=== PATIENT | female | born 1940 | race Caucasian/White ===

== ENCOUNTER 2016-08-22 08:05 | Outpatient (CLI) | payer MEDICARE, BC ==
[~2016-08-22] VITALS: Ht 175.4 cm; Wt 77.2 kg
[~2016-08-22 08:05] MED LIST: ASPIRIN 81M81 MG/TA2 PO; COLACE 100100 MG/CAP PO; CORDARONE200 MG/TAB PO; COZAAR 25MG25 MG/TAB PO; ELIQUIS 2.5 PO; FOLIC ACID 11 MG/TA1 PO; FOLIC ACID0.4 MG PO; HUMALOG100 U/ML SQ; LANTUS100 U/ML SC; LANTUS100 U/ML SQ; NEPHROCAP PO; NORCO 325 MG-51 TAB PO; VITAMIN C500 MG PO; VTAMINC250TA
[2016-08-22] MEDS ORDERED: ALDACTONE 25MG25 M1 PO (08:36)
[2016-08-22] MEDS ORDERED: HUMALOG100 U/ML SQ (08:37)
[2016-08-22] MEDS ORDERED: LANTUS100 U/ML SQ (08:38)
[2016-08-22 08:47] VITALS: BP 212/92; PULSE 67; TEMP 97.1
[2016-08-22 09:23] VITALS: BP 220/91; PULSE 68
[2016-08-22 12:30] VITALS: BP 192/88; PULSE 70; TEMP 97.1
[2016-08-22 12:45] VITALS: BP 200/91; PULSE 70; TEMP 97.1
[2016-08-22 13:00] VITALS: BP 192/91; PULSE 70; TEMP 97.1
[2016-08-22 13:15] VITALS: BP 200/138; PULSE 70; TEMP 97.1
== END 2016-08-22 14:08 | disposition home or self-care (01) ==
LOC: EUO 08:05
DX: T82.858A Stenosis of other vascular prosthetic devices, implants and grafts, initial encounter (principal); N18.6 End stage renal disease; Y83.8 Other surgical procedures as the cause of abnormal reaction of the patient, or of later complication, without mention of misadventure at the time of the procedure
CPT/HCPCS: C1725; C1769; C1894; J1644; J2250; J3010; J7120; Q9967

== ENCOUNTER 2017-02-13 10:23 | Outpatient (CLI) | payer MEDICARE, BC ==
[~2017-02-13] VITALS: Ht 175.3 cm; Wt 72.7 kg
[2017-02-13] VITALS (12 sets, daily range): BP systolic 184–226; BP diastolic 77–101; PULSE 59–83
[~2017-02-13 10:23] MED LIST changes: +ALDACTONE 25MG25 M1 PO; -COZAAR 25MG25 MG/TAB PO; +COZAAR 50MG50 MG/TAB PO
[2017-02-13] MEDS ORDERED: FOLIC ACID 11 MG/TA1 PO (11:42)
== END 2017-02-13 16:34 | disposition home or self-care (01) ==
LOC: COL.CAR 10:23
DX: T82.838A Hemorrhage due to vascular prosthetic devices, implants and grafts, initial encounter (principal); I12.0 Hypertensive chronic kidney disease with stage 5 chronic kidney disease or end stage renal disease; E11.22 Type 2 diabetes mellitus with diabetic chronic kidney disease; N18.6 End stage renal disease; Z79.4 Long term (current) use of insulin
CPT/HCPCS: J2250; J3010; Q9967

== ENCOUNTER 2017-08-12 13:45 | Inpatient (IN) | payer MEDICARE, BC ==
[~2017-08-12] VITALS: Ht 175.3 cm; Wt 82.3 kg
[~2017-08-12 13:45] MED LIST changes: +ARANESP0.04 MG/0. IV; +COREG 6.256.25 MG/TA PO; -COZAAR 50MG50 MG/TAB PO; +COZAAR100 MG PO; +HEPARIN SOD U IV; +MIRALAX PA17 GM/Dose PO; +NORVASC 5MG5 MG/TAB PO; +PLAVIX 75MG TAB75 MG PO; +TYLENOL 325MG325 MG PO; +[UNRECOGNIZED DRUG - OTHER] IV
[2017-08-12 17:18] VITALS: BP 184/63; PULSE 72; TEMP 98
[2017-08-13 05:09] VITALS: BP 161/48; PULSE 65; TEMP 97.5
[2017-08-13 06:15] LABS: MEAN CELL VOLUME 92 fl (80.0-100.0); MEAN CORPUSCULAR HGB CONC 34 g/dl (33.0-37.0); MEAN PLATELET VOLUME 10.5 fl (7.4-10.4); PLATELET COUNT 186 K/mm3 (130-400); RED BLOOD COUNT 2.98 M/mm3 (4.10-5.30); REDCELL DISTRIBUTION WIDTH-CV 15.9 % (11.5-14.5)
[2017-08-13 06:17] LABS: CALCIUM 7.7 mg/dL (8.4-10.2); POTASSIUM 3.9 mmol/L (3.4-5.0)
[2017-08-13 06:20] LABS: HEMATOCRIT 27.4 % (37.0-47.0); HEMOGLOBIN 9.2 g/dl (12.5-16.0); MEAN CORPUSCULAR HEMOGLOBIN 31 pg (27.0-31.0)
[2017-08-13 06:28] LABS: CREATININE, serum 5.98 mg/dL (0.52-1.25)
[2017-08-13 07:06] LABS: BAND 6 % (0-10); EOSINOPHIL 1 % (0-4); LYMPHOCYTE 23 % (20.0-51.0); MYELOCYTE 1 % (0-0); NEUTROPHILS 61 % (42.0-75.2); PLATELET ESTIMATE NORMAL (NORMAL)
[2017-08-13 07:07] LABS: ANISOCYTOSIS 1+; POLYCHROMASIA 1+; TOXIC GRANULATION PRESENT
[2017-08-13 16:25] VITALS: BP 162/57; PULSE 70; TEMP 97.6
[2017-08-14 00:10] VITALS: BP 179/66; PULSE 77; TEMP 97.9
[2017-08-14 00:15] VITALS: BP 179/66; PULSE 77; TEMP 97.9
[2017-08-14 06:00] VITALS: BP 136/49; PULSE 63; TEMP 97.6
[2017-08-14 06:13] LABS: MEAN CELL VOLUME 94 fl (80.0-100.0); MEAN CORPUSCULAR HGB CONC 32 g/dl (33.0-37.0); MEAN PLATELET VOLUME 10.5 fl (7.4-10.4); PLATELET COUNT 222 K/mm3 (130-400); RED BLOOD COUNT 2.93 M/mm3 (4.10-5.30)
[2017-08-14 06:20] LABS: CALCIUM 8.2 mg/dL (8.4-10.2); POTASSIUM 3.7 mmol/L (3.4-5.0)
[2017-08-14 06:21] LABS: HEMATOCRIT 27.5 % (37.0-47.0); HEMOGLOBIN 8.9 g/dl (12.5-16.0); MEAN CORPUSCULAR HEMOGLOBIN 30 pg (27.0-31.0)
[2017-08-14 06:28] LABS: CREATININE, serum 4.41 mg/dL (0.52-1.25)
[2017-08-14 06:49] LABS: BAND 5 % (0-10); EOSINOPHIL 4 % (0-4); LYMPHOCYTE 22 % (20.0-51.0); NEUTROPHILS 59 % (42.0-75.2)
[2017-08-14 06:50] LABS: HYPOCHROMIA 1+; PLATELET ESTIMATE NORMAL (NORMAL)
[2017-08-14 15:34] VITALS: BP 173/62; PULSE 69; TEMP 97.4
[2017-08-15 06:00] VITALS: BP 170/57; PULSE 71; TEMP 97.9
[2017-08-15 06:10] LABS: MEAN CELL VOLUME 94 fl (80.0-100.0); MEAN CORPUSCULAR HGB CONC 33 g/dl (33.0-37.0); MEAN PLATELET VOLUME 10.3 fl (7.4-10.4); PLATELET COUNT 223 K/mm3 (130-400); RED BLOOD COUNT 2.92 M/mm3 (4.10-5.30); REDCELL DISTRIBUTION WIDTH-CV 16.3 % (11.5-14.5)
[2017-08-15 06:13] LABS: HEMATOCRIT 27.3 % (37.0-47.0); MEAN CORPUSCULAR HEMOGLOBIN 31 pg (27.0-31.0)
[2017-08-15 06:29] LABS: CALCIUM 8.3 mg/dL (8.4-10.2)
[2017-08-15 06:39] LABS: CREATININE, serum 5.8 mg/dL (0.52-1.25)
[2017-08-15 07:17] LABS: BAND 8 % (0-10); EOSINOPHIL 2 % (0-4); LYMPHOCYTE 17 % (20.0-51.0); METAMYELOCYTE 1 % (0-0); NEUTROPHILS 60 % (42.0-75.2); PLATELET ESTIMATE NORMAL (NORMAL)
[2017-08-15 07:18] LABS: ANISOCYTOSIS 1+; HYPOCHROMIA 1+
[2017-08-15 17:30] VITALS: BP 144/40; PULSE 67; TEMP 97.5
[2017-08-16 04:01] VITALS: BP 146/51; PULSE 71; TEMP 98.3
[2017-08-16 07:07] LABS: BASO % 0.3 % (0.0-2.0); EOS % 0.5 % (0-4.0); GRAN # 3.6 (1.4-6.5); GRAN % 62.1 % (42.2-75.2); HEMATOCRIT 25.5 % (37.0-47.0); HEMOGLOBIN 8.3 g/dl (12.5-16.0); LYMPH # 1.1 (1.2-3.4); LYMPH % 19.1 % (20.0-51.0); MEAN CELL VOLUME 95 fl (80.0-100.0); MEAN CORPUSCULAR HEMOGLOBIN 31 pg (27.0-31.0); MEAN CORPUSCULAR HGB CONC 33 g/dl (33.0-37.0); MEAN PLATELET VOLUME 10.4 fl (7.4-10.4); MONO % 16.6 % (1.7-9.3); PLATELET COUNT 207 K/mm3 (130-400); RED BLOOD COUNT 2.68 M/mm3 (4.10-5.30); REDCELL DISTRIBUTION WIDTH-CV 15.9 % (11.5-14.5)
[2017-08-16 07:29] LABS: CALCIUM 8.2 mg/dL (8.4-10.2); POTASSIUM 3.6 mmol/L (3.4-5.0)
[2017-08-16 07:42] LABS: CREATININE, serum 4.12 mg/dL (0.52-1.25)
[2017-08-16 16:07] VITALS: BP 150/44; PULSE 72; TEMP 97.8
[2017-08-17 05:57] VITALS: BP 141/41; PULSE 64; TEMP 98.7
[2017-08-17 15:42] VITALS: BP 132/39; PULSE 58; TEMP 97.4
[2017-08-18 06:00] VITALS: BP 141/49; PULSE 62; TEMP 97.8
[2017-08-18 07:13] LABS: BASO % 0.2 % (0.0-2.0); EOS # 0.1 (0.0-0.7); GRAN # 4.2 (1.4-6.5); GRAN % 66.5 % (42.2-75.2); LYMPH # 1.2 (1.2-3.4); LYMPH % 19.3 % (20.0-51.0); MEAN CELL VOLUME 92 fl (80.0-100.0); MEAN CORPUSCULAR HGB CONC 33 g/dl (33.0-37.0); MEAN PLATELET VOLUME 10.7 fl (7.4-10.4); MONO # 0.8 (0.1-0.6); MONO % 11.9 % (1.7-9.3); PLATELET COUNT 245 K/mm3 (130-400); RED BLOOD COUNT 2.57 M/mm3 (4.10-5.30); REDCELL DISTRIBUTION WIDTH-CV 15.9 % (11.5-14.5)
[2017-08-18 07:16] LABS: HEMATOCRIT 23.7 % (37.0-47.0); HEMOGLOBIN 7.9 g/dl (12.5-16.0); MEAN CORPUSCULAR HEMOGLOBIN 31 pg (27.0-31.0)
[2017-08-18 07:23] LABS: CALCIUM 7.9 mg/dL (8.4-10.2); POTASSIUM 4.8 mmol/L (3.4-5.0)
[2017-08-18 08:00] LABS: CREATININE, serum 6.44 mg/dL (0.52-1.25)
[2017-08-18 16:20] VITALS: BP 147/50; PULSE 64; TEMP 97.4
[2017-08-19 06:00] VITALS: BP 147/50; PULSE 66; TEMP 98.6
[2017-08-19 17:30] VITALS: BP 135/44; PULSE 65; TEMP 97.5
[2017-08-20 06:00] VITALS: BP 155/55; PULSE 66; TEMP 96.7
[2017-08-20 06:37] LABS: BASO % 0.2 % (0.0-2.0); EOS % 0.7 % (0-4.0); GRAN # 2.5 (1.4-6.5); GRAN % 58.1 % (42.2-75.2); LYMPH # 1.2 (1.2-3.4); LYMPH % 27.2 % (20.0-51.0); MEAN CELL VOLUME 94 fl (80.0-100.0); MEAN CORPUSCULAR HGB CONC 33 g/dl (33.0-37.0); MEAN PLATELET VOLUME 10.3 fl (7.4-10.4); MONO # 0.6 (0.1-0.6); MONO % 13.1 % (1.7-9.3); PLATELET COUNT 201 K/mm3 (130-400); RED BLOOD COUNT 2.44 M/mm3 (4.10-5.30)
[2017-08-20 06:44] LABS: HEMATOCRIT 22.9 % (37.0-47.0); HEMOGLOBIN 7.6 g/dl (12.5-16.0); MEAN CORPUSCULAR HEMOGLOBIN 31 pg (27.0-31.0)
[2017-08-20 06:50] LABS: CALCIUM 7.8 mg/dL (8.4-10.2); POTASSIUM 3.9 mmol/L (3.4-5.0)
[2017-08-20 06:53] LABS: CREATININE, serum 5.14 mg/dL (0.52-1.25)
[2017-08-20 17:36] VITALS: BP 161/50; PULSE 67; TEMP 98.3
[2017-08-21 06:00] VITALS: BP 158/55; PULSE 97; TEMP 98.2
[2017-08-21 07:02] LABS: IRON,SERUM 44 ug/dL (35-150)
[2017-08-21 07:55] LABS: TOTAL IRON BINDING CAPACITY 189 ug/dL (265-497)
[2017-08-21 08:19] LABS: FERRITIN 1250 ng/mL (11-264)
[2017-08-21 15:19] VITALS: BP 160/56; PULSE 62; TEMP 97.4
[2017-08-22 05:35] VITALS: BP 146/60; PULSE 84; TEMP 98.4
[2017-08-22 06:41] LABS: BASO % 0.3 % (0.0-2.0); EOS % 0.5 % (0-4.0); GRAN # 2.1 (1.4-6.5); GRAN % 55.9 % (42.2-75.2); LYMPH # 1.2 (1.2-3.4); LYMPH % 32.5 % (20.0-51.0); MEAN CELL VOLUME 97 fl (80.0-100.0); MEAN CORPUSCULAR HGB CONC 32 g/dl (33.0-37.0); MEAN PLATELET VOLUME 10.3 fl (7.4-10.4); MONO # 0.4 (0.1-0.6); PLATELET COUNT 181 K/mm3 (130-400); RED BLOOD COUNT 2.45 M/mm3 (4.10-5.30); REDCELL DISTRIBUTION WIDTH-CV 15.9 % (11.5-14.5)
[2017-08-22 06:46] LABS: HEMATOCRIT 23.8 % (37.0-47.0); HEMOGLOBIN 7.6 g/dl (12.5-16.0); MEAN CORPUSCULAR HEMOGLOBIN 31 pg (27.0-31.0)
[2017-08-22 06:56] LABS: CALCIUM 7.8 mg/dL (8.4-10.2); POTASSIUM 4.6 mmol/L (3.4-5.0)
[2017-08-22 07:10] LABS: CREATININE, serum 4.69 mg/dL (0.52-1.25)
[2017-08-22 16:22] VITALS: BP 161/50; PULSE 67; TEMP 98.6
[2017-08-23 06:06] VITALS: BP 128/60; PULSE 65; TEMP 98.6
[2017-08-23 16:48] VITALS: BP 147/50; PULSE 61; TEMP 98.1
[2017-08-24 05:35] VITALS: BP 150/68; PULSE 82; TEMP 98
[2017-08-24 16:52] VITALS: BP 146/50; PULSE 61; TEMP 97.1
[2017-08-25 05:01] VITALS: BP 142/46; PULSE 62; TEMP 97.6
[2017-08-25 05:58] VITALS: BP 142/42; PULSE 62; TEMP 97.6
[2017-08-25 06:16] LABS: BASO % 0.3 % (0.0-2.0); EOS # 0.1 (0.0-0.7); EOS % 1.4 % (0-4.0); GRAN # 1.9 (1.4-6.5); GRAN % 53.8 % (42.2-75.2); LYMPH # 1.2 (1.2-3.4); LYMPH % 34.4 % (20.0-51.0); MEAN CELL VOLUME 96 fl (80.0-100.0); MEAN CORPUSCULAR HGB CONC 32 g/dl (33.0-37.0); MEAN PLATELET VOLUME 10.1 fl (7.4-10.4); MONO # 0.3 (0.1-0.6); MONO % 9.2 % (1.7-9.3); PLATELET COUNT 187 K/mm3 (130-400); RED BLOOD COUNT 2.67 M/mm3 (4.10-5.30)
[2017-08-25 06:21] LABS: HEMATOCRIT 25.7 % (37.0-47.0); HEMOGLOBIN 8.3 g/dl (12.5-16.0); MEAN CORPUSCULAR HEMOGLOBIN 31 pg (27.0-31.0)
[2017-08-25 06:26] LABS: CALCIUM 8.5 mg/dL (8.4-10.2); POTASSIUM 5.1 mmol/L (3.4-5.0)
[2017-08-25 06:35] LABS: CREATININE, serum 5.61 mg/dL (0.52-1.25)
[2017-08-25 17:26] VITALS: BP 152/54; PULSE 63; TEMP 97.1
[2017-08-26 04:40] VITALS: BP 158/52; PULSE 66; TEMP 98.4
[2017-08-26 16:16] VITALS: BP 163/59; PULSE 67; TEMP 97.4
[2017-08-27 05:57] VITALS: BP 168/57; PULSE 84; TEMP 98.1
[2017-08-27 07:12] LABS: BASO % 0.3 % (0.0-2.0); EOS # 0.1 (0.0-0.7); EOS % 1.3 % (0-4.0); GRAN # 2.2 (1.4-6.5); GRAN % 58.2 % (42.2-75.2); LYMPH # 1.1 (1.2-3.4); LYMPH % 29.8 % (20.0-51.0); MEAN CELL VOLUME 96 fl (80.0-100.0); MEAN CORPUSCULAR HGB CONC 32 g/dl (33.0-37.0); MEAN PLATELET VOLUME 10.3 fl (7.4-10.4); MONO # 0.4 (0.1-0.6); MONO % 9.9 % (1.7-9.3); PLATELET COUNT 202 K/mm3 (130-400); RED BLOOD COUNT 2.71 M/mm3 (4.10-5.30)
[2017-08-27 07:19] LABS: HEMATOCRIT 25.9 % (37.0-47.0); HEMOGLOBIN 8.4 g/dl (12.5-16.0); MEAN CORPUSCULAR HEMOGLOBIN 31 pg (27.0-31.0)
[2017-08-27 07:32] LABS: CALCIUM 8.6 mg/dL (8.4-10.2); POTASSIUM 4.4 mmol/L (3.4-5.0)
[2017-08-27 07:35] LABS: CREATININE, serum 5.11 mg/dL (0.52-1.25)
[2017-08-27 17:12] VITALS: BP 145/48; PULSE 68; TEMP 97.1
[2017-08-28 05:24] VITALS: BP 153/50; PULSE 60; TEMP 98.3
[2017-08-28 15:35] VITALS: BP 165/50; PULSE 64; TEMP 98.1
[2017-08-29 06:00] VITALS: BP 147/51; PULSE 58; TEMP 97.7
[2017-08-29 06:42] LABS: BASO % 0.3 % (0.0-2.0); EOS # 0.1 (0.0-0.7); GRAN # 1.5 (1.4-6.5); GRAN % 43.6 % (42.2-75.2); LYMPH # 1.3 (1.2-3.4); MEAN CELL VOLUME 96 fl (80.0-100.0); MEAN CORPUSCULAR HGB CONC 32 g/dl (33.0-37.0); MEAN PLATELET VOLUME 9.9 fl (7.4-10.4); MONO # 0.5 (0.1-0.6); MONO % 13.4 % (1.7-9.3); PLATELET COUNT 210 K/mm3 (130-400); RED BLOOD COUNT 2.78 M/mm3 (4.10-5.30); REDCELL DISTRIBUTION WIDTH-CV 17.4 % (11.5-14.5)
[2017-08-29 06:47] LABS: HEMATOCRIT 26.8 % (37.0-47.0); HEMOGLOBIN 8.5 g/dl (12.5-16.0); MEAN CORPUSCULAR HEMOGLOBIN 31 pg (27.0-31.0)
[2017-08-29 07:02] LABS: CALCIUM 8.4 mg/dL (8.4-10.2); POTASSIUM 4.1 mmol/L (3.4-5.0)
[2017-08-29 07:14] LABS: CREATININE, serum 5.35 mg/dL (0.52-1.25)
[2017-08-29 15:58] VITALS: BP 162/56; PULSE 68; TEMP 98.2
[2017-08-30 04:19] VITALS: BP 166/57; PULSE 73; TEMP 98.1
[2017-08-30 17:19] VITALS: BP 150/51; PULSE 63; TEMP 97.9
[2017-08-31 05:35] VITALS: BP 153/54; PULSE 67; TEMP 98.2
[2017-08-31 18:43] VITALS: BP 173/58; PULSE 72; TEMP 97.6
[2017-09-01 04:22] VITALS: BP 181/61; PULSE 71; TEMP 97.5
[2017-09-01 06:35] LABS: BASO % 0.5 % (0.0-2.0); EOS # 0.2 (0.0-0.7); EOS % 3.8 % (0-4.0); GRAN # 1.9 (1.4-6.5); GRAN % 47.3 % (42.2-75.2); LYMPH # 1.4 (1.2-3.4); LYMPH % 36.5 % (20.0-51.0); MEAN CELL VOLUME 99 fl (80.0-100.0); MEAN CORPUSCULAR HGB CONC 31 g/dl (33.0-37.0); MEAN PLATELET VOLUME 9.9 fl (7.4-10.4); MONO # 0.4 (0.1-0.6); MONO % 11.1 % (1.7-9.3); PLATELET COUNT 193 K/mm3 (130-400); RED BLOOD COUNT 2.69 M/mm3 (4.10-5.30)
[2017-09-01 06:40] LABS: HEMATOCRIT 26.5 % (37.0-47.0); HEMOGLOBIN 8.3 g/dl (12.5-16.0); MEAN CORPUSCULAR HEMOGLOBIN 31 pg (27.0-31.0)
[2017-09-01 06:55] LABS: CALCIUM 8.4 mg/dL (8.4-10.2); POTASSIUM 4.1 mmol/L (3.4-5.0)
[2017-09-01 07:02] LABS: CREATININE, serum 6.6 mg/dL (0.52-1.25)
[2017-09-01 18:00] VITALS: BP 164/58; PULSE 65; TEMP 98.1
[2017-09-02 06:00] VITALS: BP 149/46; PULSE 71; TEMP 98.6
[2017-09-02] MEDS ORDERED: LANTUS100 U/ML SQ (11:17)
[2017-09-02 18:29] VITALS: BP 168/66; PULSE 70; TEMP 97.5
== END 2017-09-02 20:38 | disposition home health service (06) | DRG 56 ==
PROVIDERS: Internal Medicine; Internal Medicine Nephrology
PROC: 5A1D70Z Performance of Urinary Filtration, Intermittent, Less than 6 Hours Per Day (ICD-10-PCS; principal; 2017-08-13)
PROC: 5A1D70Z Performance of Urinary Filtration, Intermittent, Less than 6 Hours Per Day (ICD-10-PCS; 2017-08-15)
PROC: 5A1D70Z Performance of Urinary Filtration, Intermittent, Less than 6 Hours Per Day (ICD-10-PCS; 2017-08-18)
PROC: 5A1D70Z Performance of Urinary Filtration, Intermittent, Less than 6 Hours Per Day (ICD-10-PCS; 2017-08-20)
PROC: 5A1D70Z Performance of Urinary Filtration, Intermittent, Less than 6 Hours Per Day (ICD-10-PCS; 2017-08-22)
PROC: 5A1D70Z Performance of Urinary Filtration, Intermittent, Less than 6 Hours Per Day (ICD-10-PCS; 2017-08-25)
PROC: 5A1D70Z Performance of Urinary Filtration, Intermittent, Less than 6 Hours Per Day (ICD-10-PCS; 2017-08-27)
PROC: 5A1D70Z Performance of Urinary Filtration, Intermittent, Less than 6 Hours Per Day (ICD-10-PCS; 2017-08-29)
PROC: 5A1D70Z Performance of Urinary Filtration, Intermittent, Less than 6 Hours Per Day (ICD-10-PCS; 2017-09-01)
DX: I69.354 Hemiplegia and hemiparesis following cerebral infarction affecting left non-dominant side (principal); N18.6 End stage renal disease; G93.41 Metabolic encephalopathy; N25.81 Secondary hyperparathyroidism of renal origin; I13.2 Hypertensive heart and chronic kidney disease with heart failure and with stage 5 chronic kidney disease, or end stage renal disease; I50.32 Chronic diastolic (congestive) heart failure; J90 Pleural effusion, not elsewhere classified; E11.22 Type 2 diabetes mellitus with diabetic chronic kidney disease; Z99.2 Dependence on renal dialysis; E11.65 Type 2 diabetes mellitus with hyperglycemia; D63.1 Anemia in chronic kidney disease; E11.42 Type 2 diabetes mellitus with diabetic polyneuropathy; I48.0 Paroxysmal atrial fibrillation; I25.10 Atherosclerotic heart disease of native coronary artery without angina pectoris; F43.21 Adjustment disorder with depressed mood; Z79.4 Long term (current) use of insulin
CPT/HCPCS: 99222-AI; 99232-AI; 99239; A9284; J0881; J1644; J1815; J2916

== ENCOUNTER 2018-11-24 14:08 | Inpatient (IN) | payer MEDICARE, BC ==
[~2018-11-24] VITALS: Ht 172.7 cm; Wt 74.6 kg
[~2018-11-24 14:08] MED LIST changes: -COREG 6.256.25 MG/TA PO; +COREG12.5 MG PO
[2018-11-24] MEDS ORDERED: TRIPHROCAPS SOFT1 MG PO (16:37)
[2018-11-24] MEDS ORDERED: PHOS LO (16:42)
[2018-11-24 16:53] VITALS: BP 169/62; PULSE 62; TEMP 97.9
[2018-11-24 20:25] VITALS: BP 169/56; PULSE 71; TEMP 98.7
[2018-11-24 23:52] VITALS: BP 189/62; PULSE 70; TEMP 97.9
[2018-11-25] VITALS (8 sets, daily range): BP systolic 142–192; BP diastolic 45–72; PULSE 60–79; TEMP 97.4–100.5
[2018-11-25 07:09] LABS: BASO % 0.2 % (0.0-2.0); EOS # 0.1 (0.0-0.7); EOS % 1.6 % (0-4.0); GRAN # 3.1 (1.4-6.5); GRAN % 69.4 % (42.2-75.2); LYMPH # 0.9 (1.2-3.4); LYMPH % 19.6 % (20.0-51.0); MEAN CELL VOLUME 100 fl (80.0-100.0); MEAN CORPUSCULAR HGB CONC 32 g/dl (33.0-37.0); MEAN PLATELET VOLUME 11.4 fl (7.4-10.4); MONO # 0.4 (0.1-0.6); MONO % 8.5 % (1.7-9.3); PLATELET COUNT 109 K/mm3 (130-400); RED BLOOD COUNT 2.46 M/mm3 (4.10-5.30); REDCELL DISTRIBUTION WIDTH-CV 13.2 % (11.5-14.5)
[2018-11-25 07:12] LABS: HEMATOCRIT 24.7 % (37.0-47.0); HEMOGLOBIN 7.9 g/dl (12.5-16.0); MEAN CORPUSCULAR HEMOGLOBIN 32 pg (27.0-31.0)
[2018-11-25 07:29] LABS: ALBUMIN 3.3 gm/dL (3.5-5.0); CALCIUM 8.1 mg/dL (8.4-10.2); PHOSPHOROUS 3.6 mg/dL (2.5-4.5); POTASSIUM 4.2 mmol/L (3.4-5.0)
[2018-11-25 07:30] LABS: CREATININE, serum 7.43 (0.52-1.25)
[2018-11-25 07:41] LABS: C-REACTIVE PROTEIN 15.7 mg/dL (0.0-0.9)
[2018-11-25 11:39] LABS: BILIRUBIN,TOTAL 0.6 mg/dL (0.0-1.0); TOTAL PROTEIN 6.1 gm/dL (6.4-8.2)
[2018-11-26] VITALS (7 sets, daily range): BP systolic 112–170; BP diastolic 36–86; PULSE 61–77; TEMP 97.6–98.7
[2018-11-26 06:32] LABS: BASO % 0.5 % (0.0-2.0); EOS # 0.1 (0.0-0.7); EOS % 1.6 % (0-4.0); GRAN # 2.9 (1.4-6.5); GRAN % 64.9 % (42.2-75.2); LYMPH % 22.8 % (20.0-51.0); MEAN CELL VOLUME 101 fl (80.0-100.0); MEAN CORPUSCULAR HGB CONC 32 g/dl (33.0-37.0); MEAN PLATELET VOLUME 11.2 fl (7.4-10.4); MONO # 0.4 (0.1-0.6); MONO % 9.3 % (1.7-9.3); PLATELET COUNT 118 K/mm3 (130-400); RED BLOOD COUNT 2.48 M/mm3 (4.10-5.30); REDCELL DISTRIBUTION WIDTH-CV 13.2 % (11.5-14.5)
[2018-11-26 06:41] LABS: MEAN CORPUSCULAR HEMOGLOBIN 32 pg (27.0-31.0)
[2018-11-26 06:44] LABS: ALBUMIN 3.2 gm/dL (3.5-5.0); CALCIUM 8.4 mg/dL (8.4-10.2); PHOSPHOROUS 3.4 mg/dL (2.5-4.5); POTASSIUM 4.2 mmol/L (3.4-5.0)
[2018-11-26 06:48] LABS: CREATININE, serum 4.44 (0.52-1.25)
[2018-11-27 03:32] VITALS: BP 144/48; PULSE 68; TEMP 98.3
[2018-11-27 06:28] LABS: MEAN CELL VOLUME 98 fl (80.0-100.0); MEAN CORPUSCULAR HGB CONC 33 g/dl (33.0-37.0); MEAN PLATELET VOLUME 11.3 fl (7.4-10.4); PLATELET COUNT 158 K/mm3 (130-400); RED BLOOD COUNT 2.46 M/mm3 (4.10-5.30); REDCELL DISTRIBUTION WIDTH-CV 13.2 % (11.5-14.5)
[2018-11-27 06:35] LABS: HEMATOCRIT 24.1 % (37.0-47.0); HEMOGLOBIN 7.9 g/dl (12.5-16.0); MEAN CORPUSCULAR HEMOGLOBIN 32 pg (27.0-31.0)
[2018-11-27 06:40] LABS: ALBUMIN 3.2 gm/dL (3.5-5.0); CALCIUM 8.3 mg/dL (8.4-10.2); PHOSPHOROUS 3.2 mg/dL (2.5-4.5); POTASSIUM 4.4 mmol/L (3.4-5.0)
[2018-11-27 06:42] LABS: CREATININE, serum 6.51 (0.52-1.25)
[2018-11-27 07:42] LABS: BAND 3 % (0-10); EOSINOPHIL 3 % (0-4); LYMPHOCYTE 32 % (20.0-51.0); METAMYELOCYTE 1 % (0-0); NEUTROPHILS 58 % (42.0-75.2); NUCLEATED RED BLOOD CELL 1 (0-6); PLATELET ESTIMATE NORMAL (NORMAL)
[2018-11-27 07:43] VITALS: BP 152/59; PULSE 68; TEMP 97.2
[2018-11-27 11:36] VITALS: BP 192/65; PULSE 66; TEMP 97.8
[2018-11-27 15:51] VITALS: BP 178/52; PULSE 72; TEMP 97.5
[2018-11-27] MEDS ORDERED: COREG12.5 MG PO (20:04)
[2018-11-27] MEDS ORDERED: CORDARONE200 MG/TAB PO (20:05)
[2018-11-27] MEDS ORDERED: NORVASC 5MG5 MG/TAB PO (20:06)
[2018-11-27] MEDS ORDERED: COZAAR 50MG50 MG/TAB PO (20:06)
[2018-11-27] MEDS ORDERED: NEPHROCAP PO (20:07)
[2018-11-27] MEDS ORDERED: FOLIC ACID 11 MG/TA1 PO (20:07)
[2018-11-27] MEDS ORDERED: VITAMIN C500 MG PO (20:08)
[2018-11-27] MEDS ORDERED: LEVAQUIN 5500 MG/TA1 PO (20:09)
[2018-11-27 20:16] VITALS: BP 174/54; PULSE 65; TEMP 97.6
[2018-11-27 21:21] VITALS: BP 148/58
== END 2018-11-27 23:19 | disposition home health service (06) | DRG 602 ==
LOC: MEDICAL 14:08
PROVIDERS: ADMIT Internal Medicine Nephrology
PROC: 5A1D70Z Performance of Urinary Filtration, Intermittent, Less than 6 Hours Per Day (ICD-10-PCS; principal; 2018-11-25)
DX: L03.116 Cellulitis of left lower limb (principal); N18.6 End stage renal disease; I12.0 Hypertensive chronic kidney disease with stage 5 chronic kidney disease or end stage renal disease; E46 Unspecified protein-calorie malnutrition; K92.2 Gastrointestinal hemorrhage, unspecified; D63.1 Anemia in chronic kidney disease; E11.22 Type 2 diabetes mellitus with diabetic chronic kidney disease; D50.9 Iron deficiency anemia, unspecified; G62.9 Polyneuropathy, unspecified; D69.6 Thrombocytopenia, unspecified; Z99.2 Dependence on renal dialysis; Z90.710 Acquired absence of both cervix and uterus; Z79.02 Long term (current) use of antithrombotics/antiplatelets; Z79.4 Long term (current) use of insulin; Z91.14 Patient's other noncompliance with medication regimen; Z68.25 Body mass index [BMI] 25.0-25.9, adult
CPT/HCPCS: J0882; J1644; J1815; J1956; J2765; J7030

== ENCOUNTER 2019-01-28 10:06 | Outpatient (CLI) | payer MEDICARE, BC ==
[~2019-01-28] VITALS: Ht 172.8 cm; Wt 75.0 kg
[~2019-01-28 10:06] MED LIST changes: +COZAAR 50MG50 MG/TAB PO; +LEVAQUIN 5500 MG/TA1 PO; +PHOS LO; +TRIPHROCAPS SOFT1 MG PO
[2019-01-28] MEDS ORDERED: TYLENOL 325MG325 MG PO (10:46)
[2019-01-28] MEDS ORDERED: CORDARONE200 MG/TAB PO (10:49)
[2019-01-28] MEDS ORDERED: VITAMIN C500 MG PO (10:50)
[2019-01-28] MEDS ORDERED: PHOS LO PO (10:51)
[2019-01-28] MEDS ORDERED: COREG12.5 MG PO (10:51)
[2019-01-28] MEDS ORDERED: FOLIC ACID 11 MG/TA1 PO (10:52)
[2019-01-28] MEDS ORDERED: NORVASC 5MG5 MG/TAB PO (10:53)
[2019-01-28] MEDS ORDERED: COZAAR 50MG50 MG/TAB PO (10:56)
[2019-01-28] MEDS ORDERED: NEPHROCAP PO (10:58)
[2019-01-28] MEDS ORDERED: TUMS500 MG PO (10:59)
[2019-01-28] MEDS ORDERED: CORICIDIN HBP1 EACH PO (11:00)
[2019-01-28] MEDS ORDERED: COLACE 100100 MG/CAP PO (11:00)
[2019-01-28] MEDS ORDERED: ULTRAM 50MG TAB50 MG PO (11:02)
[2019-01-28] MEDS ORDERED: TESSALON P100 MG/CAP PO (11:02)
[2019-01-28 11:31] VITALS: BP 190/78; PULSE 63; TEMP 98.7
[2019-01-28 13:31] VITALS: BP 185/74; PULSE 63
--- NOTE | 2019-01-28 13:32 | NUR ---
SEE MERGE DOCUMENTATION FOR MEDICATION ADMINISTRATION TIMES AND INTRA/POST PROCEDURE SEDATION ASSESSMENTS.
[2019-01-28 14:25] VITALS: BP 172/68; PULSE 62
--- NOTE | 2019-01-28 14:25 | NUR ---
Back from Air Sealing Technician. Alert and oriented. Band-aid to left forearm fistula CD&I. VSS.
[2019-01-28 14:40] VITALS: BP 179/76; PULSE 63
[2019-01-28 14:55] VITALS: BP 178/78; PULSE 65
[2019-01-28 15:25] VITALS: BP 180/77; PULSE 62
--- NOTE | 2019-01-28 15:33 | NUR ---
INT discontinued intact. Ambulated to bathroom with cane and steady gait. Discharge instructions given
--- NOTE | 2019-01-28 15:37 | NUR ---
Transferred to private car by ana rosa
== END 2019-01-28 15:37 | disposition home or self-care (01) ==
LOC: COL.CAR 10:06
DX: T82.898A Other specified complication of vascular prosthetic devices, implants and grafts, initial encounter (principal); E11.22 Type 2 diabetes mellitus with diabetic chronic kidney disease; I12.0 Hypertensive chronic kidney disease with stage 5 chronic kidney disease or end stage renal disease; N18.6 End stage renal disease; Z99.2 Dependence on renal dialysis; Z79.84 Long term (current) use of oral hypoglycemic drugs; Z90.49 Acquired absence of other specified parts of digestive tract; Z90.710 Acquired absence of both cervix and uterus
CPT/HCPCS: J1644; Q9967

== ENCOUNTER 2019-10-08 13:04 | Inpatient (IN) | payer MEDICARE, BC ==
[~2019-10-08] VITALS: Ht 175.3 cm; Wt 81.5 kg
[~2019-10-08 13:04] MED LIST changes: +CORICIDIN HBP1 EACH PO; +PHOS LO PO; +TESSALON P100 MG/CAP PO; +TUMS500 MG PO; +ULTRAM 50MG TAB50 MG PO
[2019-10-08 17:05] VITALS: BP 180/62; PULSE 52; TEMP 95.8
[2019-10-08 17:07] LABS: BASO % 0.3 % (0.0-2.0); EOS % 0.3 % (0-4.0); GRAN # 5.1 (1.4-6.5); GRAN % 82.8 % (42.2-75.2); HEMOGLOBIN 10.7 g/dl (12.5-16.0); LYMPH # 0.6 (1.2-3.4); LYMPH % 9.3 % (20.0-51.0); MEAN CELL VOLUME 91 fl (80.0-100.0); MEAN CORPUSCULAR HEMOGLOBIN 31 pg (27.0-31.0); MEAN CORPUSCULAR HGB CONC 34 g/dl (33.0-37.0); MEAN PLATELET VOLUME 11.4 fl (7.4-10.4); MONO # 0.4 (0.1-0.6); MONO % 6.8 % (1.7-9.3); PLATELET COUNT 101 K/mm3 (130-400); RED BLOOD COUNT 3.49 M/mm3 (4.10-5.30); REDCELL DISTRIBUTION WIDTH-CV 12.7 % (11.5-14.5)
[2019-10-08 17:12] LABS: ALBUMIN 4.2 gm/dL (3.5-5.0); BILIRUBIN,TOTAL 0.6 mg/dL (0.0-1.0); CALCIUM 8.9 mg/dL (8.4-10.2); CREATININE, serum 7.01 (0.52-1.25); POTASSIUM 4.9 mmol/L (3.4-5.0); TOTAL PROTEIN 7.3 gm/dL (6.4-8.2)
[2019-10-08 17:18] LABS: HEMATOCRIT 31.9 % (37.0-47.0)
--- NOTE | 2019-10-08 19:14 | NUR ---
REPORT TO PAIGE MARTIN.
--- NOTE | 2019-10-08 19:35 | NUR ---
Received report from MARIO Camacho. Pt is currently lying in bed and she has her call light [facility].
--- NOTE | 2019-10-08 19:35 | NUR ---
Received report from MARIO Camacho. Pt currently lying in bed with her call light within reach.
[2019-10-08 19:58] VITALS: BP 167/66; PULSE 95; TEMP 97.6
[2019-10-08 23:49] VITALS: BP 155/62; PULSE 59; TEMP 98
[2019-10-09 03:35] VITALS: BP 164/60; PULSE 59; TEMP 98.9
--- NOTE | 2019-10-09 05:30 | NUR ---
Pt currently resting in bed. Pt stated that her pain was better now. Pt was given pain medication by MARIO Talavera. Pt was given [place] PO at the time she called out for pain. Pt blood pressure readying was 164/60 pt was given PRN dose of hydralazine 25 mg at this time. Pt has her call light within reach and he bed is in lowest position.
--- NOTE | 2019-10-09 07:30 | NUR ---
Reported off to MARIO Crabtree. Pt is sitting up in bed eating her breakfast. Pt stated that she was ok with pain. She has her call light within reach and her bed is in lowest position.
[2019-10-09 07:53] VITALS: BP 156/52; PULSE 56; TEMP 98.5
[2019-10-09 07:56] LABS: BASO % 0.4 % (0.0-2.0); EOS # 0.1 (0.0-0.7); EOS % 2.3 % (0-4.0); GRAN # 3.2 (1.4-6.5); GRAN % 66.4 % (42.2-75.2); LYMPH # 1.1 (1.2-3.4); LYMPH % 23.8 % (20.0-51.0); MEAN CELL VOLUME 93 fl (80.0-100.0); MEAN CORPUSCULAR HGB CONC 33 g/dl (33.0-37.0); MEAN PLATELET VOLUME 11.9 fl (7.4-10.4); MONO # 0.3 (0.1-0.6); MONO % 6.7 % (1.7-9.3); PLATELET COUNT 87 K/mm3 (130-400); RED BLOOD COUNT 2.93 M/mm3 (4.10-5.30); REDCELL DISTRIBUTION WIDTH-CV 12.9 % (11.5-14.5)
--- NOTE | 2019-10-09 07:57 | NUR ---
Sitting up in bed eating breakfast. Denies pain at this time. Bruising noted to both arms and left side of face. Splint to left forearm. Patient denies further needs at this time.
[2019-10-09 08:03] LABS: ALBUMIN 3.3 gm/dL (3.5-5.0); CALCIUM 8.4 mg/dL (8.4-10.2); CREATININE, serum 7.16 (0.52-1.25); PHOSPHOROUS 5.5 mg/dL (2.5-4.5); POTASSIUM 5.4 mmol/L (3.4-5.0)
[2019-10-09 08:25] LABS: HEMATOCRIT 27.1 % (37.0-47.0); MEAN CORPUSCULAR HEMOGLOBIN 31 pg (27.0-31.0)
[2019-10-09 11:37] VITALS: BP 154/63; PULSE 61; TEMP 98
--- NOTE | 2019-10-09 12:05 | NUR ---
Lying in bed with eyes open. Patient says that she walked with PT in the halls and it wore her out. Assisted patient to sitting up position to eat lunch. Explained that Charo is planning on doing her dialysis this afternoon. Patient denies pain at this time. Denies further needs.
--- NOTE | 2019-10-09 14:49 | NUR ---
SW met patient at patients bedside to complete intake. Patient lives in [place] alone, with her daughter Stacia [phone] as care support and EMR. Patient indicated that she does not have a DPOA, and SW left one for patient to review. Patient reports that she uses oxygen at night, a walker, and a shower chair. Patient reports that her PCP is Dr. Pineda, and she does have an upcoming appontment in December. Patient reports she gets her medications [facility] with no concerns. Patient declined [facility]HS at this time, siting that she receives services from the [facility] and a traveling nurse stops by. Patient could not recall names. SW will continue to follow.
--- NOTE | 2019-10-09 15:35 | NUR ---
Lying in bed with eyes open. RT in room with the patient. Patient denies pain at this time. Denies any needs.
[2019-10-09 15:53] VITALS: BP 149/56; PULSE 55; TEMP 98.3
--- NOTE | 2019-10-09 19:30 | NUR ---
PATIENT RESTING IN BED DURING CHANGE OF SHIFT REPORT FROM DAY SHIFT NURSEYASIR. DENIES ANY NEEDS AT TIME OF REPORT.
[2019-10-09 19:44] VITALS: BP 157/60; PULSE 58; TEMP 97.7
--- NOTE | 2019-10-09 20:00 | NUR ---
DECREASED LUE MOVEMENT/STRENGTH DUE TO L RADIAL FX/SPLINT SARATH DRSG IN PLACE. ABLE TO WIGGLE L HAND FINGERS WITH L ARM ELEVATED, ENCOURAGED TO KEEP WIGGLING L HAND FINGERS MUCH POSSIBLE.
[2019-10-09 23:28] VITALS: BP 149/50; PULSE 74; TEMP 98.2
--- NOTE | 2019-10-09 23:30 | NUR ---
PATIENT REFUSED SCD FOR VTE. NO OTHER NEEDS REPORTED.
--- NOTE | 2019-10-09 23:32 | NUR ---
Received report from MARIO Dent. Pt currently sleeping in bed.
--- NOTE | 2019-10-10 | NUR ---
Report given to Gabby RN, nightclub manager vocational rehabilitation technician nurse with no needs reported from patient at time of this report.
--- NOTE | 2019-10-10 03:33 | NUR ---
Pt called out requesting to sit up on the side of her bed. Pt was assisted with this at this time with the aide. Pt called out in like 15 minutes requesting to get back in bed. Pt was assisted at this time. She did state that her pain was ok at this time and she was able to move around better. Pt is currently back and has her call light within reach.
[2019-10-10 04:20] VITALS: BP 133/46; PULSE 51; TEMP 97.9
--- NOTE | 2019-10-10 06:46 | NUR ---
Pt is currently in Room 321 with MARIO Acevedo to receive dialysis. She was transferred via wheelchair with assistance from the aide.
[2019-10-10 07:06] LABS: BASO % 0.4 % (0.0-2.0); EOS # 0.1 (0.0-0.7); EOS % 2.9 % (0-4.0); GRAN % 60.5 % (42.2-75.2); LYMPH # 1.4 (1.2-3.4); LYMPH % 27.6 % (20.0-51.0); MEAN CELL VOLUME 93 fl (80.0-100.0); MEAN CORPUSCULAR HGB CONC 33 g/dl (33.0-37.0); MEAN PLATELET VOLUME 11.8 fl (7.4-10.4); MONO # 0.4 (0.1-0.6); PLATELET COUNT 97 K/mm3 (130-400)
[2019-10-10 07:07] LABS: ALBUMIN 3.7 gm/dL (3.5-5.0); CALCIUM 8.6 mg/dL (8.4-10.2); CREATININE, serum 8.93 (0.52-1.25); PHOSPHOROUS 6.5 mg/dL (2.5-4.5); POTASSIUM 4.9 mmol/L (3.4-5.0)
[2019-10-10 07:24] LABS: HEMATOCRIT 27.8 % (37.0-47.0); HEMOGLOBIN 9.2 g/dl (12.5-16.0); MEAN CORPUSCULAR HEMOGLOBIN 31 pg (27.0-31.0)
--- NOTE | 2019-10-10 07:45 | NUR ---
Reported off to MARIO Crabtree. Pt is currently in dialysis with MARIO Acevedo in room 321.
--- NOTE | 2019-10-10 08:04 | NUR ---
Patient in dialysis at this time, performed assessment while patient is receiving dialysis. Denies pain at this time. Bruising noted to bilat arms and face. Splint in place to left arm. AV fistula in left forearm accessed for dialysis at this time. CMS intact to left arm/hand. 2+ edema noted to left arm/hand. Patient denies needs at this time.
--- NOTE | 2019-10-10 09:50 | NUR ---
Patient still at dialysis.
[2019-10-10 11:42] VITALS: BP 175/56; PULSE 66; TEMP 97.5
--- NOTE | 2019-10-10 11:50 | NUR ---
Sitting up in bed with eyes open. Rates pain 8/10 and would like pain medication. Administered [place] as prescribed. Patient eating lunch. Denies further needs.
--- NOTE | 2019-10-10 14:05 | NUR ---
Patient lying in bed with eyes closed. Respirations even and unlabored. No signs or symptoms of discomfort noted at this time.
[2019-10-10 15:36] VITALS: BP 167/46; PULSE 63; TEMP 98.1
--- NOTE | 2019-10-10 15:50 | NUR ---
BP eevated, 167/46. Apresoline administered as prescribed. Patient lying in bed watching TV. Denies pain at this time. Denies any needs.
--- NOTE | 2019-10-10 17:38 | NUR ---
Lying in bed with eyes open watching TV. Minimal pain at this time, denies need for pain medication. Left arm elevated on pillow. Patient requests warm blanket for feet. Warm blanket provided. Patient denies further needs.
[2019-10-10 20:08] VITALS: BP 153/47; PULSE 100; TEMP 98.2
[2019-10-10 23:37] VITALS: BP 163/49; PULSE 62; TEMP 98.9
[2019-10-11 03:44] VITALS: BP 171/51; PULSE 63; TEMP 98.4
--- NOTE | 2019-10-11 05:53 | NUR ---
SPLINT TO LUE RE-WRAPPED PER PT REQUEST SHE SAID IT WAS TOO TIGHT. SPLINT SEEMED TO NOT BE AFFECTING PT'S AV FISTULA IT HAD GOOD BRUIT & THRILL. PT MEDICATED FOR LUE DISCOMFORT AT H.S.
--- NOTE | 2019-10-11 07:00 | NUR ---
Report received from MARIO Thomas. Pt in bed resting eating breakfast, denies needs will continue to monitor.
[2019-10-11 07:11] VITALS: BP 149/53; PULSE 59; TEMP 98.3
[2019-10-11 08:05] LABS: BASO % 0.7 % (0.0-2.0); EOS # 0.1 (0.0-0.7); EOS % 2.6 % (0-4.0); GRAN # 2.5 (1.4-6.5); GRAN % 59.5 % (42.2-75.2); LYMPH # 1.2 (1.2-3.4); LYMPH % 27.4 % (20.0-51.0); MEAN CELL VOLUME 95 fl (80.0-100.0); MEAN CORPUSCULAR HGB CONC 32 g/dl (33.0-37.0); MEAN PLATELET VOLUME 12.1 fl (7.4-10.4); MONO # 0.4 (0.1-0.6); MONO % 9.1 % (1.7-9.3); PLATELET COUNT 96 K/mm3 (130-400); RED BLOOD COUNT 3.07 M/mm3 (4.10-5.30); REDCELL DISTRIBUTION WIDTH-CV 12.9 % (11.5-14.5)
[2019-10-11 08:13] LABS: ALBUMIN 3.6 gm/dL (3.5-5.0); CALCIUM 8.6 mg/dL (8.4-10.2); CREATININE, serum 6.55 (0.52-1.25); PHOSPHOROUS 4.7 mg/dL (2.5-4.5); POTASSIUM 4.3 mmol/L (3.4-5.0)
[2019-10-11 08:21] LABS: HEMATOCRIT 29.1 % (37.0-47.0); HEMOGLOBIN 9.4 g/dl (12.5-16.0); MEAN CORPUSCULAR HEMOGLOBIN 31 pg (27.0-31.0)
--- NOTE | 2019-10-11 08:30 | NUR ---
Assessment charted. PT states she is unsure of bruising and breakdown on face. States LUE is not painful "in right position", assisted with elevating on pillows and offered ice pack which was refused. INT to RFA. LFA AV fistula bruit and thrill present. Swelling to L hand fingers but good sensation and cap refill. Will continue to monitor.
[2019-10-11 11:02] VITALS: BP 154/49; PULSE 57; TEMP 97.7
--- NOTE | 2019-10-11 13:45 | NUR ---
Pt called d/t c/o pain at 8 to 9/10 to RUQ abdomen. Assisted pt up to chair, pt took some time and took frequent breaks d/t pain. Epidural site is CDI, no signs of it being out of place. abd dressings are CDI, and lap sites are WA. Called Dr. Gaspar and relayed update and he wants to proceed with removing the epidural and delaney. Will provide.
[2019-10-11 15:31] VITALS: PULSE 58; TEMP 97.6
--- NOTE | 2019-10-11 18:08 | NUR ---
Pt has done well over shift, resting in bed, eating some supper. Called Dr. Sims this afternoon as pt states she is having cramping in feet. No return VM. Pt states it is improving but still there, eating some supper. Denies needs, will give bedside shift report to nighthshift nurse who will resume care.
[2019-10-11 20:43] VITALS: BP 174/57; PULSE 55; TEMP 97.7
[2019-10-12] VITALS (13 sets, daily range): BP systolic 146–184; BP diastolic 45–72; PULSE 54–85; TEMP 97.4–98.7
--- NOTE | 2019-10-12 06:58 | NUR ---
Patient had a hard time sleeping this shift. She was assisted into the recliner at 0200. Appeared to sleep better there. Bruit and thrill present to AV fistula in left arm. Splint to left wrist. Patient has been NPO since midnight in prep for Vanessa today. Patient compliant with cares. Denies pain throughout the night. Edema noted to left hand, cap refill <3 seconds. Patient verbalizes that she does not want to do dialysis today, but patient educated on why this is important for her to do. Will continue to monitor.
[2019-10-12 07:08] LABS: BASO % 0.4 % (0.0-2.0); EOS # 0.2 (0.0-0.7); EOS % 3.7 % (0-4.0); GRAN % 63.4 % (42.2-75.2); LYMPH # 1.1 (1.2-3.4); LYMPH % 23.9 % (20.0-51.0); MEAN CELL VOLUME 93 fl (80.0-100.0); MEAN CORPUSCULAR HGB CONC 34 g/dl (33.0-37.0); MEAN PLATELET VOLUME 11.9 fl (7.4-10.4); MONO # 0.4 (0.1-0.6); MONO % 8.2 % (1.7-9.3); PLATELET COUNT 95 K/mm3 (130-400); RED BLOOD COUNT 2.79 M/mm3 (4.10-5.30); REDCELL DISTRIBUTION WIDTH-CV 12.7 % (11.5-14.5)
[2019-10-12 07:21] LABS: ALBUMIN 3.3 gm/dL (3.5-5.0); CALCIUM 8.4 mg/dL (8.4-10.2); CREATININE, serum 7.64 (0.52-1.25); PHOSPHOROUS 4.8 mg/dL (2.5-4.5); POTASSIUM 4.5 mmol/L (3.4-5.0)
[2019-10-12 07:30] LABS: HEMOGLOBIN 8.8 g/dl (12.5-16.0); MEAN CORPUSCULAR HEMOGLOBIN 32 pg (27.0-31.0)
--- NOTE | 2019-10-12 07:34 | NUR ---
Dr. Sims notified of chloride level. No new orders at this time.
--- NOTE | 2019-10-12 09:05 | NUR ---
Sitting up in chair with eyes open. Denies pain at this time. Bruising and swelling noted to left side of face. Bruising noted to bilat arms. Left arm in splint. Nuclear med here to take the patient for test via wheelchair.
--- NOTE | 2019-10-12 11:32 | NUR ---
First visit from the orthopaedic technologist. No needs right now.
--- NOTE | 2019-10-12 13:49 | NUR ---
Sitting up in recliner with eyes closed. Respirations even and unlabored. No signs or symptoms of discomfort noted at this time.
--- NOTE | 2019-10-12 15:12 | NUR ---
Patient would like to get in bed at this time. Transfer into bed with assist of one. Assisted patient into comfortable position. Patient having minimal discomfort in left arm and would like Tylenol. Administered Tylenol as prescribed. Patient denies further needs.
--- NOTE | 2019-10-12 15:29 | NUR ---
Call placed to CHAVA Marrero, to see if we can use sling for left arm. Message left.
--- NOTE | 2019-10-12 16:41 | NUR ---
Shake Backboard Notcher met with patient to review discharge plan. Patient plans to return home with [facility]. SIVAKUMAR faxed referral to MARIO Delarosa. Patient also needs a platform walker. SIVAKUMAR prepped order and obtained signature from Dr. Sims. Patient selected [facility] for DME provider. SIVAKUMAR will continue to follow.
--- NOTE | 2019-10-12 18:23 | NUR ---
Lying in bed with eyes closed. Opens eyes when name called out. Denies pain or any needs at this time.
--- NOTE | 2019-10-12 19:25 | NUR ---
Received report from MARIO Crabtree. Pt lying in bed and has no complaints of pain at this time.
[2019-10-13 00:44] VITALS: BP 145/46; PULSE 52; TEMP 97.8
--- NOTE | 2019-10-13 03:30 | NUR ---
During hourly rounds pt stated that she was very restless. Pt has assisted with sitting up on the side of the bed. Pt was informed that she has Benadryl for insomina pt stated she was ok. She was able to dangle and stated that this was better. She did say that her shoulder was hurting so pt was given Tylenol for pain. Pt is currently lying back in bed and has he call light within reach.
[2019-10-13 05:20] VITALS: BP 158/56; PULSE 57; TEMP 97.8
[2019-10-13 07:04] LABS: BASO % 0.4 % (0.0-2.0); EOS # 0.1 (0.0-0.7); EOS % 3.1 % (0-4.0); LYMPH # 1.1 (1.2-3.4); LYMPH % 23.5 % (20.0-51.0); MEAN CELL VOLUME 92 fl (80.0-100.0); MEAN CORPUSCULAR HGB CONC 34 g/dl (33.0-37.0); MEAN PLATELET VOLUME 12.4 fl (7.4-10.4); MONO # 0.3 (0.1-0.6); MONO % 6.6 % (1.7-9.3); PLATELET COUNT 104 K/mm3 (130-400); RED BLOOD COUNT 2.86 M/mm3 (4.10-5.30); REDCELL DISTRIBUTION WIDTH-CV 12.6 % (11.5-14.5)
[2019-10-13 07:11] LABS: ALBUMIN 3.5 gm/dL (3.5-5.0); CALCIUM 8.7 mg/dL (8.4-10.2); CREATININE, serum 8.64 (0.52-1.25); HEMATOCRIT 26.4 % (37.0-47.0); MEAN CORPUSCULAR HEMOGLOBIN 31 pg (27.0-31.0); POTASSIUM 5.3 mmol/L (3.4-5.0)
--- NOTE | 2019-10-13 07:31 | NUR ---
Reported off to MARIO Tran. Pt is currently sitting up in bed and has her call light within reach.
[2019-10-13 07:40] VITALS: BP 164/53; PULSE 65; TEMP 97.6
--- NOTE | 2019-10-13 07:48 | NUR ---
Patient tolerated breakfast & did well. She has been up and ambulated halls with platform walker. Sling provided. Dialysis today. Left wrist/forearm swollen. Splint & lc intact. Fingers are warm & she can wiggle them. Tyelnol for pain in her wrist.
--- NOTE | 2019-10-13 08:18 | NUR ---
Patient to dialysis with Aaccia caring for patient
[2019-10-13] MEDS ORDERED: APRESOLINE 25MG25 MG PO (10:39)
[2019-10-13] MEDS ORDERED: TOPROL XL 25MG25 MG PO (10:41)
[2019-10-13] MEDS ORDERED: IMODIUM 2MG CAPS2 MG PO (10:48)
[2019-10-13] MEDS ORDERED: ULTRAM 50MG TAB50 MG PO (10:52)
[2019-10-13 12:13] VITALS: BP 132/49; PULSE 62; TEMP 97.6
[2019-10-13 13:43] VITALS: BP 132/49; PULSE 62; TEMP 97.6
--- NOTE | 2019-10-13 14:14 | NUR ---
Lye Bath Operator met with patient and Dr. Sims to review discharge plan. Patient also had her daughter, Stacia (ph#[phone]) on the phone. Patient would like to go to [facility]. Dr. Sims contacted patient's primary care physician, Dr. Negrete who agreed to accept patient. SIVAKUMAR faxed referral to Jody at [facility] who advised they are able to accept today. SIVAKUMAR collaborated with Stacia who will be here to strip picker patient this afternoon around 1500 after patient has her ortho plast made. SIVAKUMAR provided time to RN at [facility] who stated this transport time works for them. SIVAKUMAR met with patient and read IM form out loud. Patient verbalized understanding then provided verbal consent as signature. SIVAKUMAR placed original in chart and provided copy to patient. SIVAKUMAR collaborated with Stacia who will strip picker patient's platform attachment for her walker from [facility]. SIVAKUMAR contacted Mk at [facility] to advise that Stacia would strip picker the platform. No additional needs at this time.
--- NOTE | 2019-10-13 14:58 | NUR ---
Patient completed dialysis. She had lunch and did well. Patient in therapy room to get her orthoplast placement to her left wrist. drafting layout worker made [facility] aware. Report called to nurse at [facility]. Questions answered.
== END 2019-10-13 15:28 | disposition home or self-care (01) | DRG 562 ==
LOC: MEDICAL 13:04 → SURG 14:58
PROVIDERS: Nurse Practitioner; ADMIT Internal Medicine Nephrology
PROC: 2W39X1Z Immobilization of Left Upper Extremity using Splint (ICD-10-PCS; 2019-10-08)
PROC: 5A1D70Z Performance of Urinary Filtration, Intermittent, Less than 6 Hours Per Day (ICD-10-PCS; principal; 2019-10-10)
DX: S62.102A Fracture of unspecified carpal bone, left wrist, initial encounter for closed fracture (principal); N18.6 End stage renal disease; S52.502A Unspecified fracture of the lower end of left radius, initial encounter for closed fracture; I12.0 Hypertensive chronic kidney disease with stage 5 chronic kidney disease or end stage renal disease; E11.22 Type 2 diabetes mellitus with diabetic chronic kidney disease; D63.1 Anemia in chronic kidney disease; I25.10 Atherosclerotic heart disease of native coronary artery without angina pectoris; I48.91 Unspecified atrial fibrillation; E03.9 Hypothyroidism, unspecified; E83.39 Other disorders of phosphorus metabolism; W01.0XXA Fall on same level from slipping, tripping and stumbling without subsequent striking against object, initial encounter; R06.00 Dyspnea, unspecified; E78.5 Hyperlipidemia, unspecified; Z90.710 Acquired absence of both cervix and uterus; Z87.820 Personal history of traumatic brain injury; Z90.49 Acquired absence of other specified parts of digestive tract; Z79.82 Long term (current) use of aspirin; Z79.4 Long term (current) use of insulin; Z91.14 Patient's other noncompliance with medication regimen; Y93.89 Activity, other specified
CPT/HCPCS: A9500; J1644; J1815; J2785; J7030; Q5105

== ENCOUNTER 2020-01-31 12:54 | Inpatient (IN) | payer MEDICARE, BC ==
[~2020-01-31] VITALS: Ht 175.3 cm; Wt 69.4 kg
[~2020-01-31 12:54] MED LIST changes: +APRESOLINE 25MG25 MG PO; +IMODIUM 2MG CAPS2 MG PO; +TOPROL XL 25MG25 MG PO
[2020-01-31 16:55] LABS: BASO % 0.6 % (0.0-2.0); EOS # 0.1 (0.0-0.7); EOS % 2.9 % (0-4.0); GRAN # 2.1 (1.4-6.5); GRAN % 63.1 % (42.2-75.2); HEMOGLOBIN 10.6 g/dl (12.5-16.0); LYMPH % 30.7 % (20.0-51.0); MEAN CELL VOLUME 95 fl (80.0-100.0); MEAN CORPUSCULAR HEMOGLOBIN 32 pg (27.0-31.0); MEAN CORPUSCULAR HGB CONC 34 g/dl (33.0-37.0); MEAN PLATELET VOLUME 10.8 fl (7.4-10.4); MONO # 0.1 (0.1-0.6); MONO % 2.4 % (1.7-9.3); PLATELET COUNT 117 K/mm3 (130-400); RED BLOOD COUNT 3.29 M/mm3 (4.10-5.30); REDCELL DISTRIBUTION WIDTH-CV 14.1 % (11.5-14.5)
[2020-01-31 16:56] LABS: HEMATOCRIT 31.1 % (37.0-47.0)
[2020-01-31 16:57] LABS: INR 1.2 (0.8-3.0)
[2020-01-31 17:00] LABS: ALBUMIN 3.7 gm/dL (3.5-5.0); BILIRUBIN,TOTAL 0.7 mg/dL (0.0-1.0); CALCIUM 9.6 mg/dL (8.4-10.2); CREATININE, serum 10.89 (0.52-1.25); POTASSIUM 5.6 mmol/L (3.4-5.0); TOTAL PROTEIN 6.6 gm/dL (6.4-8.2)
[2020-01-31] MEDS ORDERED: NORVASC 10MG10 MG PO (18:53)
[2020-01-31] MEDS ORDERED: LANTUS100 U/ML SQ (18:58)
--- NOTE | 2020-01-31 19:15 | NUR ---
Received report from Enrique. Patient not in the room yet. Still on dialysis.
--- NOTE | 2020-01-31 19:35 | NUR ---
Patient came up via bed from dialysis. She is alert and oriented. Provided and re-heat her dinner tray. With INT on right hand and right wrist, both flushes well. With dialysis fistula on Left upper extremity covered with gauze. Patient has unequal pupils, right is greater than left. Walker provided on the bedside. Denies pain. Bed alarm on. Call light within reach.
[2020-01-31] MEDS ORDERED: HUMALOG100 U/ML SQ (19:47)
--- NOTE | 2020-01-31 19:51 | NUR ---
Pt to floor transferred fron [facility] this afternoon, received report from facility telephonically of critical values of K+ 7.7, creat of 12.63, and BUN 94. Contacted provider and gave report of above, received orders to establish second IV site and for the following medications; 1X amp of D50 IVP, followed by 10 units novalog IVP, followed with 1X amp sodium bicarb IVP, additionally 1X amp of 10% calcium chloride IVP. All medications were given and Pt moved to dialsis immediately following.
[2020-01-31 21:00] VITALS: BP 177/67; PULSE 70; TEMP 97.1
--- NOTE | 2020-01-31 21:52 | NUR ---
Patient's blood pressure is elevated. Due Losartan was given. Will re-check her blood pressure again if there's a need to give Hydralazine PRN.
--- NOTE | 2020-01-31 22:18 | NUR ---
Five page assesment done. Medrec completed already by Enrique MARTIN. Informed patient regarding SCD on bilateral lower extremities but she refused them. On the assesment, patient refuses call after discharge.
[2020-01-31 23:59] VITALS: BP 169/93; PULSE 68; TEMP 98.2
--- NOTE | 2020-02-01 00:10 | NUR ---
Patient's blood pressure still elevated at 169/93. Hydralazine PRN given.
[2020-02-01 04:36] VITALS: BP 160/60; PULSE 65; TEMP 98.2
--- NOTE | 2020-02-01 04:45 | NUR ---
Patient's blood pressure is still elevated at 160/60. This nurse is about to give Hydralazine but patient refused at first saying her blood pressure is normal for her. Informed her that she has an order for Hydralazine for SBP of more than or equal to 160 and if she won't take it, her blood pressure will elevate even more in the next few hours. Patient agreed and took the Hydralazine.
[2020-02-01 08:17] LABS: BASO % 0.5 % (0.0-2.0); EOS # 0.1 (0.0-0.7); GRAN % 69.5 % (42.2-75.2); HEMOGLOBIN 11.5 g/dl (12.5-16.0); LYMPH # 0.7 (1.2-3.4); LYMPH % 16.2 % (20.0-51.0); MEAN CELL VOLUME 95 fl (80.0-100.0); MEAN CORPUSCULAR HEMOGLOBIN 32 pg (27.0-31.0); MEAN CORPUSCULAR HGB CONC 34 g/dl (33.0-37.0); MEAN PLATELET VOLUME 10.6 fl (7.4-10.4); MONO # 0.5 (0.1-0.6); MONO % 10.6 % (1.7-9.3); PLATELET COUNT 115 K/mm3 (130-400); REDCELL DISTRIBUTION WIDTH-CV 14.3 % (11.5-14.5)
[2020-02-01 08:19] LABS: HEMATOCRIT 34.3 % (37.0-47.0)
[2020-02-01 08:32] LABS: ALBUMIN 3.7 gm/dL (3.5-5.0); CALCIUM 8.4 mg/dL (8.4-10.2); CREATININE, serum 7.5 (0.52-1.25); PHOSPHOROUS 6.7 mg/dL (2.5-4.5); POTASSIUM 5.6 mmol/L (3.4-5.0)
--- NOTE | 2020-02-01 08:57 | NUR ---
Initial visit; Patient thanked Licensed Occupational Therapy Assistant for looking in on her and offering encouragement and to keep her in Licensed Occupational Therapy Assistant's prayers.
[2020-02-01 11:24] VITALS: BP 156/62; PULSE 75; TEMP 97.5
--- NOTE | 2020-02-01 14:46 | NUR ---
SIVAKUMAR attempted to meet with the patient to discuss discharge plan. The patient was sleeping and did not wake. SIVAKUMAR then contacted the patient's daughter, Stacia Groves (ph#[phone]), to complete intake. The patient lives alone in [place]. Stacia states that her and her two siblings, Mk and Thomas, live within 3-4 miles from the patient and check in on the patient frequently. Stacia reports that the patient is independent with some ADLs and has a walker and rolaider. Stacia reports that the patient receives home health services from [facility]. They help her with bathing twice a week and an RN visits her twice a week. The patient's PCP is Dr. Jose Woo and she receives her medications at [facility]. Stacia reports no difficulties obtaining her meds. The patient does not have advance directives in EMR. Stacia reports that she thinks the patient has a DPOA-HC completed, which designates her. She states that she is unsure of where this document is though. Stacia reports that the patient has eight children: Her, Mk, Thomas, Nikunj ([place]), Quintin ([place]), Paolo ([place]), and Fredy and Scott. Fredy and Scott live locally, but Stacia states they are not involved and do not help. SIVAKUMAR contacted Dr. Woo's office to inquire if they have the document. The entry level receptionist reports that they do not. SIVAKUMAR then discussed therapies recommendation of home with home health, if able with Stacia. Stacia reports plan is for the patient to return home and resume home health services. SIVAKUMAR then contacted and faxed updates to [place] at [facility]. Jersey reports that they are providing private pay RN services to the patient. [place] states that the patient is not homebound and that they would not be able to provide PT/OT services covered by insurance, if the patient is not agreeable to being homebound. SIVAKUMAR to discuss this with the patient and her daughter and will continue to follow.
[2020-02-01 16:30] VITALS: BP 180/72; PULSE 76; TEMP 97.7
[2020-02-01 19:33] VITALS: BP 182/67; PULSE 76; TEMP 97.9
--- NOTE | 2020-02-01 19:35 | NUR ---
Received report from Anjali. Seen patient awake, lying in bed. She denies pain. She is alert and oriented. She states she will have dialysis tomorrow then she will be discharge. Call light within reach.
[2020-02-01 23:53] VITALS: BP 168/59; PULSE 71; TEMP 98.1
[2020-02-02] VITALS (9 sets, daily range): BP systolic 145–209; BP diastolic 43–73; PULSE 62–69; TEMP 97.5–98
--- NOTE | 2020-02-02 00:10 | NUR ---
Patient's blood pressure is elevated. Hydralazine PRN given.
--- NOTE | 2020-02-02 01:45 | NUR ---
Seen patient sitting on the edge of the bed. This nurse asked patient is she's okay and if she needs anything. Patient states she's having a hard time sleeping after she was awaken at midnight. Offered to her Benadryl as it was ordered for her insomnia. Patient agreed to take it.
--- NOTE | 2020-02-02 06:00 | NUR ---
Acacia called to bring patient for dialysis. Patient has an incontinent bowel movement and changed her briefs before going to dialysis. Informed Acacia that her blood pressure awhile ago was systolic of 191 and hydralazine was given.
[2020-02-02 07:09] LABS: BASO % 0.5 % (0.0-2.0); EOS # 0.2 (0.0-0.7); EOS % 4.4 % (0-4.0); GRAN # 2.7 (1.4-6.5); GRAN % 62.6 % (42.2-75.2); LYMPH % 22.2 % (20.0-51.0); MEAN CELL VOLUME 95 fl (80.0-100.0); MEAN CORPUSCULAR HEMOGLOBIN 32 pg (27.0-31.0); MEAN CORPUSCULAR HGB CONC 33 g/dl (33.0-37.0); MEAN PLATELET VOLUME 9.9 fl (7.4-10.4); MONO # 0.4 (0.1-0.6); MONO % 10.1 % (1.7-9.3); PLATELET COUNT 117 K/mm3 (130-400); RED BLOOD COUNT 3.48 M/mm3 (4.10-5.30); REDCELL DISTRIBUTION WIDTH-CV 14.2 % (11.5-14.5)
[2020-02-02 07:11] LABS: HEMATOCRIT 33.1 % (37.0-47.0)
[2020-02-02 07:20] LABS: ALBUMIN 3.7 gm/dL (3.5-5.0); CALCIUM 8.3 mg/dL (8.4-10.2); CREATININE, serum 8.76 (0.52-1.25); PHOSPHOROUS 7.3 mg/dL (2.5-4.5)
[2020-02-02 07:23] LABS: POTASSIUM 5.9 mmol/L (3.4-5.0)
--- NOTE | 2020-02-02 10:30 | NUR ---
PT RETURNED FROM DIALYSIS. DENIES PAIN AT THIS TIME. GOT WARM WASH CLOTH FOR PT PER PT REQUEST, BREAKFAST GIVEN TO PT. VITALS REVIEWED, MEDICATIONS GIVEN, DRINK BROUGHT IN FOR PT. INFORMED PT WE HAD TO WAIT ON DISCHARGE UNTIL PHSYICIAN SAW HER AND PUT IN ORDERS. POTASSIUM LAB RECHECK DUE AT 12. NO OTHER NEEDS.
--- NOTE | 2020-02-02 15:52 | NUR ---
Early Head Start Teacher met with patient to follow up on discharge plan. Patient states she does not want to be homebound as her great granddaughter has a birthday this weekend. Patient states she also doesn't feel like she needs PT/OT at this time. Patient would like to continue with her current services from [facility]. SW contacted [facility] to provide update and faxed discharge information/orders. SIVAKUMAR contacted patient's daughter, Stacia who advised she would be there to pickler helper patient this evening. Stacia advised she agrees that she doesn't feel patient needs PT/OT at this time. Stacia states patient's biggest need is dietary and meal prep, which she receives from [facility]. SIVAKUMAR also consulted Natalie Dietitian who provided names of two apps that could help patient. SIVAKUMAR provided these apps to Stacia who states she will download them to look for recipes for patient. Patient to [place] home with [facility] and aides from [facility]. No additional needs at this time.
--- NOTE | 2020-02-02 17:10 | NUR ---
GAVE PT APRESOLINE PER MAR ORDERS. PT PLEASANT, AOX4, DENIES PAIN OR DISCOMFORT, DISCHARGE COMPLETE FROM NURSES END, WAITING ON DAUGHTER TO PRIMER ASSEMBLER PATIENT FOR DISCHARGE. IV'S DISCONTINUED, DISCHARGE EDUCATION PROVIDED, PT ENJOYING COFFEE PER PT REQUEST.
--- NOTE | 2020-02-02 18:02 | NUR ---
NOTIFIED DR. OCAMPO OF [facility] BP, ORDERED GIVING COZAAR EARLY, PT REFUSED THIS AND SAID SHE WANTED TO GIVE THE HYDRALAZINE MORE TIME TO WORK. WILL RECHECK BP IN 15 MORE MIN. STILL WAITING ON RIDE OF DAUGHTER BUT WILL WAIT FOR BP TO GO BACK TO NORMAL LEVEL.
--- NOTE | 2020-02-02 18:18 | NUR ---
BP INCREASED TO 209 SYSTOLIC, PT AGREED TO TAKE COZAAR, COZAAR ADMINISTERED.
--- NOTE | 2020-02-02 18:38 | NUR ---
DAUGHTER ARRIVED, INFORMED OF SITUATION, PT DAUGHTER LEAVING TO RUN ERRANDS, WILL CALL DAUGHTER WHEN PT BP DOWN TO NORMAL VALUE. DAUGHTER'S NUMBER (PAWEL) IS [phone]
--- NOTE | 2020-02-02 20:10 | NUR ---
Patient's BP on bedside shift report was 191/62. Rechecked around 1929 with a result of 170/62. Stated she was feeling well and wanted to go home. Daughter called at that time and asked if patient was ready to go. Told daughter that her BP was coming down, and as long as it was still down when she came to get her she would be able to discharge. BP at 1999 was 154/60. Left with daughter at 2009. All discharge instructions have already been gone over with patient on previous shift. Denies having any questions, needs, or concerns at time of discharge.
== END 2020-02-02 20:10 | disposition home health service (06) | DRG 640 ==
LOC: MEDICAL 12:54
PROVIDERS: ADMIT Internal Medicine Nephrology
PROC: 5A1D70Z Performance of Urinary Filtration, Intermittent, Less than 6 Hours Per Day (ICD-10-PCS; principal; 2020-02-02)
DX: E87.5 Hyperkalemia (principal); N18.6 End stage renal disease; E03.9 Hypothyroidism, unspecified; E11.22 Type 2 diabetes mellitus with diabetic chronic kidney disease; I25.10 Atherosclerotic heart disease of native coronary artery without angina pectoris; I48.91 Unspecified atrial fibrillation; E83.39 Other disorders of phosphorus metabolism; R00.1 Bradycardia, unspecified; W19.XXXA Unspecified fall, initial encounter; Z90.49 Acquired absence of other specified parts of digestive tract; Z79.4 Long term (current) use of insulin; Z91.14 Patient's other noncompliance with medication regimen; Z90.710 Acquired absence of both cervix and uterus
CPT/HCPCS: J1644; J1815; J7030; Q5105